=== PATIENT | female | born 1935 | race Caucasian/White ===

== ENCOUNTER 2020-12-22 11:13 | Emergency (ER) | payer MEDICARE, OTHER ==
[2020-12-22] MEDS ORDERED: Pantoprazole 40 MG Vial IVPUSH ONE (11:44)
[2020-12-22] MEDS ORDERED: Sodium Chloride 0.9% 1,000 ML IV SCH (11:45)
--- NOTE | 2020-12-22 11:50 | EDM.PDOC ---
ED HPI GENERAL MEDICAL PROBLEM - General Chief Complaint: Gastrointestinal Problem Stated Complaint: MEDICAL VIA NORTH Time Seen by Provider: 12/22/20 11:35 Source of Information: Reports: Patient, EMS History Limitations: Reports: No Limitations - History of Present Illness INITIAL COMMENTS - FREE TEXT/NARRATIVE: 85-year-old female brought in by EMS due to recurring abdominal pain, hematemesis, dark stools and weakness. She insist this started because she stopped her pain medications. She has chronic back pain. She has not had GI bleed issues in the past, no history of ulcers. No fevers or chills, no chest pain or shortness of breath. Onset: Sudden (Symptoms started fairly suddenly 3 days ago) Associated Symptoms: Reports: Loss of Appetite, Malaise, Nausea/Vomiting (Hematemesis), Weakness. Denies: Confusion, Chest Pain, Cough, Shortness of Breath Abdomen Pain Score (Numeric/FACES): 7 - Related Data Allergies Allergy/AdvReac Type Severity Reaction Status Date / Time PARAMJIT Inhibitors Allergy Cough Verified 12/22/20 11:19 gabapentin Allergy Rash Verified 12/22/20 11:19 oxycodone Allergy Nausea Verified 12/22/20 11:19 Penicillins Allergy Rash Verified 12/22/20 11:19 Quinolones Allergy Muscle Verified 12/22/20 11:19 Aches vancomycin Allergy Hives Verified 12/22/20 11:19 zolpidem Allergy Other Verified 12/22/20 11:19 Home Meds: Home Meds Albuterol Sulfate [Albuterol Sulfate Hfa] 2 puff INH Q4H PRN 09/30/19 [History] Alendronate Sodium [Fosamax] 70 mg PO DAILY 09/30/19 [History] Aspirin [Adult Low Dose Aspirin EC] 81 mg PO DAILY 09/30/19 [History] Cetirizine [ZyrTEC] 10 mg PO DAILY PRN 09/30/19 [History] Cholecalciferol (Vitamin D3) [Vitamin D3] 1,000 unit PO DAILY 09/30/19 [History] Clobetasol [Clobetasol Propionate 0.05%] 1 applic TOP BID PRN 09/30/19 [History] Esomeprazole [NexIUM] 40 mg PO DAILY 09/30/19 [History] Hydrocodone/Acetaminophen [[place] 7.5-325 Tablet] 1 each PO Q12H PRN 09/30/19 [History] Nitroglycerin [Nitrostat] 0.4 mg SL ASDIRECTED 09/30/19 [History] Sennosides/Docusate Sodium [Senna Plus 8.6-50 mg Tablet] 1 each PO DAILY 09/30/19 [History] atorvaSTATin Calcium [Lipitor] 20 mg PO DAILY 09/30/19 [History] estradioL [Estrace 0.01% Vaginal Crm] 0.5 g VAG DAILY 09/30/19 [History] predniSONE 20 mg PO ASDIRECTED 09/30/19 [History] tiZANidine HCl [Zanaflex] 4 mg PO Q8H PRN 09/30/19 [History] Social & Family History - Tobacco Use Tobacco Use Status *Q: Never Tobacco User - Recreational Drug Use Recreational Drug Use: No ED ROS GENERAL - Review of Systems Review Of Systems: See Below Constitutional: Reports: Malaise. Denies: Fever, Chills HEENT: Denies: Throat Pain Respiratory: Denies: Shortness of Breath Cardiovascular: Denies: Chest Pain, Palpitations GI/Abdominal: Reports: Abdominal Pain, Hematemesis, Melena, Nausea, Vomiting : Reports: No Symptoms Musculoskeletal: Reports: Back Pain (Chronic, unchanged) Skin: Reports: Pallor. Denies: Bruising Neurological: Reports: Weakness. Denies: Confusion, Headache, Paresthesia, Trouble Speaking Psychiatric: Reports: No Symptoms ED EXAM, GENERAL - Physical Exam Exam: See Below Exam Limited By: No Limitations General Appearance: Alert, No Apparent Distress, Other (Vitals are normal, temperature is 98.1, O2 sats 96 and blood pressure 175/75. Pulse is 84) Head: Atraumatic Neck: Supple, Non-Tender Respiratory/Chest: Lungs Clear Cardiovascular: Regular Rate, Rhythm. No: Tachycardia GI/Abdominal: Soft, Other (Some scattered abdominal tenderness to palpation but no focal tenderness or guarding) Rectal (Female) Exam: Normal Exam, Other (Darkish stool is present but it is not melanotic, there are no rectal masses or tenderness) Extremities: Normal Inspection. No: Pedal Edema Neurological: Alert, Oriented, No Motor/Sensory Deficits Psychiatric: Normal Affect, Normal Mood Course - Vital Signs Last Recorded V/S: Last Vital Signs Temp 98.1 F 12/22/20 11:15 Pulse 82 12/22/20 12:08 Resp 23 H 12/22/20 12:08 BP 187/85 H 12/22/20 12:08 Pulse Ox 97 12/22/20 12:08 - Orders/Labs/Meds Labs: Laboratory Tests 12/22/20 12/22/20 12/22/20 Range/Units 11:43 11:43 11:43 WBC 8.7 (4.5-11.0) K/uL RBC 4.81 (3.30-5.50) M/uL Hgb 16.4 H (12.0-15.0) g/dL Hct 49.0 H (36.0-48.0) % MCV 102 H (80-98) fL MCH 34 H (27-31) pg MCHC 34 (32-36) % Plt Count 278 (150-400) K/uL Neut % (Auto) 77.1 H (36-66) % Lymph % (Auto) 15.4 L (24-44) % [place] % (Auto) 6.0 (2-6) % Eos % (Auto) 1.2 L (2-4) % Baso % (Auto) 0.3 (0-1) % PT 10.8 H (9.2-10.6) sec INR 1.1 Sodium 138 L (140-148) mmol/L Potassium 4.2 (3.6-5.2) mmol/L Chloride 103 (100-108) mmol/L Carbon Dioxide 22 (21-32) mmol/L Anion Gap 17.2 H (5.0-14.0) mmol/L BUN 14 (7-18) mg/dL Creatinine 0.8 (0.6-1.0) mg/dL Est Cr Clr Drug Dosing 43.59 mL/min Estimated GFR (MDRD) > 60 (>60) Glucose 100 (74-106) mg/dL Calcium 8.3 L (8.5-10.1) mg/dL Total Bilirubin 1.0 (0.2-1.0) mg/dL AST 35 (15-37) U/L ALT 21 (12-78) U/L Alkaline Phosphatase 61 (46-116) U/L Total Protein 7.2 (6.4-8.2) g/dL Albumin 3.6 (3.4-5.0) g/dL Globulin 3.6 H (2.3-3.5) g/dL Albumin/Globulin Ratio 1.0 L (1.2-2.2) Meds: Medications Discontinued Medications Generic Name Dose Route Start Last Admin Trade Name Uriel PRN Reason Stop Dose Admin Sodium Chloride 1,000 mls @ 250 mls/hr 12/22/20 11:45 12/22/20 12:03 Normal Saline IV 250 mls/hr ASDIRECTED JONO Administration Pantoprazole Sodium 40 mg 12/22/20 11:44 12/22/20 12:03 Pantoprazole 40 Mg Vial IVPUSH 12/22/20 11:45 40 mg ONETIME ONE Administration - Re-Assessments/Exams Free Text/Narrative Re-Assessment/Exam: 12/22/20 11:49 A guaiac will be tested on the stool, CBC CMP INR drawn and the patient will be given 250 cc of normal saline along with 40 mg of IV Protonix. 12/22/20 13:18 Stool was guaiac positive, but hemoglobin was normal, BUN was normal, electrolytes normal. Patient was in the emergency room for 2 hours and had no emesis or dark stools. She has not had her normal pain medications for the last 3 days, I suspect it is because some nausea and vomiting, possibly gastritis or small [place] tears causing her symptoms. I gave her 15 tramadol to use as directed until she can get a new prescription, and encouraged her to take 20 mg of omeprazole daily for 2 weeks. She can return if symptoms persist over the next 2 or 3 days. Departure - Departure Time of Disposition: 13:48 Disposition: Home, Self-Care 01 Clinical Impression: Hematemesis of unknown cause Chronic pain Qualifiers: Chronic pain type: chronic pain syndrome Qualified Code(s): G89.4 - Chronic pain syndrome - Discharge Information Instructions: Hematemesis, Managing Chronic Back Pain Referrals: PCP,None [Primary Care Provider] - Forms: ED Department Discharge Care Plan Goals: Restart your tramadol as needed and get a refill if you feel better taking the pain medication. I would also strongly recommend at least 20 mg of omeprazole daily for 2 consecutive weeks. Return to the emergency room in 2 to 3 days if you continue to have dark stools or vomiting. Sepsis Event Note (ED) - Evaluation Sepsis Screening Result: No Definite Risk - Focused Exam Vital Signs: Vital Signs Temp Pulse Resp BP Pulse Ox 12/22/20 12:08 82 23 H 187/85 H 97 12/22/20 11:15 98.1 F 84 20 175/75 H 96
== END 2020-12-22 14:04 | disposition home or self-care (01) ==
LOC: JP.ED 11:13
DX: G89.4 Chronic pain syndrome (principal); R10.9 Unspecified abdominal pain; K92.0 Hematemesis; Z88.8 Allergy status to other drugs, medicaments and biological substances; Z88.5 Allergy status to narcotic agent; Z88.0 Allergy status to penicillin; Z88.1 Allergy status to other antibiotic agents
CPT/HCPCS: 36415; 80053; 82272; 85025; 85610; 96374; 99285; C9113; J7030

== ENCOUNTER 2021-01-17 21:14 | Emergency (ER) | payer MEDICARE ==
--- NOTE | 2021-01-17 21:47 | EDM.PDOC ---
<OfficerRuben - Last Filed: 01/17/21 21:45> ED HPI GENERAL MEDICAL PROBLEM - General Chief Complaint: Lower Extremity Injury/Pain Stated Complaint: MEDICAL VIA NORTH (FALL) Time Seen by Provider: 01/17/21 21:41 Source of Information: Reports: Patient, Family, RN Notes Reviewed History Limitations: Reports: No Limitations - History of Present Illness INITIAL COMMENTS - FREE TEXT/NARRATIVE: 85-year-old female presents emergency department today via EMS complaining of right hip pain, she believes she fell out of bed Sunday evening however she lives in assisted living does not see medical care, has been pivoting on one hip and not bearing weight since that time. Now the pain has gotten so severe she presented to the emergency department for further evaluation this evening. Right Hip Pain Score (Numeric/FACES): 5 - Related Data Allergies Allergy/AdvReac Type Severity Reaction Status Date / Time PARAMJIT Inhibitors Allergy Cough Verified 12/22/20 11:19 gabapentin Allergy Rash Verified 12/22/20 11:19 oxycodone Allergy Nausea Verified 12/22/20 11:19 Penicillins Allergy Rash Verified 12/22/20 11:19 Quinolones Allergy Muscle Verified 12/22/20 11:19 Aches vancomycin Allergy Hives Verified 12/22/20 11:19 zolpidem Allergy Other Verified 12/22/20 11:19 Home Meds: Home Meds Albuterol Sulfate [Albuterol Sulfate Hfa] 2 puff INH Q4H PRN 09/30/19 [History] Aspirin [Adult Low Dose Aspirin EC] 81 mg PO DAILY 09/30/19 [History] Cetirizine [ZyrTEC] 10 mg PO DAILY PRN 09/30/19 [History] Esomeprazole [NexIUM] 40 mg PO DAILY 09/30/19 [History] Nitroglycerin [Nitrostat] 0.4 mg SL ASDIRECTED 09/30/19 [History] Sennosides/Docusate Sodium [Senna Plus 8.6-50 mg Tablet] 1 each PO DAILY 09/30/19 [History] atorvaSTATin Calcium [Lipitor] 20 mg PO DAILY 09/30/19 [History] estradioL [Estrace 0.01% Vaginal Crm] 0.5 g VAG DAILY 09/30/19 [History] Cholecalciferol (Vitamin D3) [Vitamin D3] 1,000 unit PO DAILY 01/17/21 [History] Naproxen 250 mg PO BID 01/17/21 [History] Pregabalin [Lyrica] 75 mg PO TID 01/17/21 [History] traMADol [Ultram] 50 mg PO Q8H PRN 01/17/21 [History] Past Medical History Cardiovascular History: Reports: Angina [employer] History: Reports: Musculoskeletal History: Reports: Back Pain, Chronic Oncologic (Cancer) History: Reports: Other (See Below) Other Oncologic History: 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 - Infectious Disease History Infectious Disease History: Reports: Chicken Pox, Measles, Mumps, Rubella, Shingles - Past Surgical History GI Surgical History: Reports: Appendectomy, Cholecystectomy Female Surgical History: Reports: Hysterectomy, Oophorectomy Neurological Surgical History: Reports: Spinal Fusion Musculoskeletal Surgical History: Reports: Other (See Below) Other Musculoskeletal Surgeries/Procedures:: 5 back surgeries Social & Family History - Family History Family Medical History: No Pertinent Family History - Tobacco Use Tobacco Use Status *Q: Never Tobacco User Second Hand Smoke Exposure: No - Caffeine Use Caffeine Use: Reports: None - Recreational Drug Use Recreational Drug Use: No Review of Systems - Review of Systems Review Of Systems: See Below Constitutional: Reports: No Symptoms Musculoskeletal: Reports: Joint Pain (Right hip pain) ED EXAM, GENERAL - Physical Exam Exam: See Below Free Text/Narrative:: The right hip is shortened externally rotated she will not tolerate any bit of an exam she is tender to palpation over the greater trochanter Exam Limited By: No Limitations General Appearance: Alert, WD/WN, No Apparent Distress Departure - Departure Disposition: Home, Self-Care 01 Clinical Impression: Weakness, Fall in elderly patient - Discharge Information Instructions: Weakness Referrals: PCP,None [Ordering Only Provider] - Forms: ED Department Discharge Additional Instructions: Continue your usual medications. Home care and usp placement are pending. Sepsis Event Note (ED) - Evaluation Sepsis Screening Result: No Definite Risk <Brandyn Paige - Last Filed: 01/18/21 15:28> Course - Vital Signs Last Recorded V/S: Last Vital Signs Temp 36.9 C 01/18/21 03:58 Pulse 88 01/18/21 15:11 Resp 20 01/18/21 11:41 BP 112/42 L 01/18/21 15:11 Pulse Ox 98 01/18/21 11:41 - Orders/Labs/Meds Orders: Active Orders 24 hr Category Date Time Status Consult to Occupational Therapy [OT Evaluation and Cons 01/17/21 23:31 Active Treatment] [CONS] Routine PT Evaluation and Treatment [CONS] Routine Cons 01/17/21 23:31 Active Hip Min 2V or 3V Rt [CR] Stat Exams 01/17/21 21:44 Taken UA W/MICROSCOPIC [URIN] Urgent Lab 01/18/21 05:13 Ordered Pregabalin [Lyrica] Med 01/18/21 11:49 Active 75 mg PO TID traMADol [Ultram] Med 01/18/21 11:45 Active 50 mg PO Q6H Medication Orders Pregabalin (Pregabalin 75 Mg Cap) 75 mg PO TID [facility] Last Admin: 01/18/21 14:05 Dose: Not Given Documented by: Admin: 01/18/21 12:05 Dose: 75 mg Documented by: [id number] Tramadol HCl (Tramadol 50 Mg Tab) 50 mg PO Q6H [facility] Last Admin: 01/18/21 12:06 Dose: 50 mg Documented by: [id number] Labs: Laboratory Tests 01/18/21 01/18/21 Range/Units 05:14 05:20 WBC 10.2 (4.5-11.0) K/uL RBC 4.12 (3.30-5.50) M/uL Hgb 13.7 D (12.0-15.0) g/dL Hct 43.6 (36.0-48.0) % MCV 106 H (80-98) fL MCH 33 H (27-31) pg MCHC 31 L (32-36) % Plt Count 271 (150-400) K/uL Neut % (Auto) 71.2 H (36-66) % Lymph % (Auto) 16.3 L (24-44) % [place] % (Auto) 10.2 H (2-6) % Eos % (Auto) 2.0 (2-4) % Baso % (Auto) 0.3 (0-1) % Sodium 140 (140-148) mmol/L Potassium 4.4 (3.6-5.2) mmol/L Chloride 105 (100-108) mmol/L Carbon Dioxide 27 (21-32) mmol/L Anion Gap 8.3 (5.0-14.0) mmol/L BUN 16 (7-18) mg/dL Creatinine 1.0 (0.6-1.0) mg/dL Est Cr Clr Drug Dosing 34.51 mL/min Estimated GFR (MDRD) 53 L (>60) Glucose 113 H (74-106) mg/dL Calcium 8.0 L (8.5-10.1) mg/dL Meds: Medications Generic Name Dose Route Start Last Admin Trade Name Freq PRN Reason Stop Dose Admin Pregabalin 75 mg 01/18/21 11:49 01/18/21 14:05 Pregabalin 75 Mg Cap PO Not Given TID OJNO Tramadol HCl 50 mg 01/18/21 11:45 01/18/21 12:06 Tramadol 50 Mg Tab PO 50 mg Q6H JONO Administration Discontinued Medications Generic Name Dose Route Start Last Admin Trade Name Freq PRN Reason Stop Dose Admin Hydromorphone HCl 0.5 mg 01/17/21 22:39 01/17/21 22:46 Hydromorphone 0.5 Mg/0.5 Ml Syringe IVPUSH 01/17/21 22:40 0.5 mg ONETIME ONE Administration Hydromorphone HCl 0.5 mg 01/18/21 04:42 01/18/21 04:49 Hydromorphone 0.5 Mg/0.5 Ml Syringe IVPUSH 01/18/21 04:43 0.5 mg ONETIME ONE Administration Pregabalin 75 mg 01/18/21 14:00 Pregabalin 75 Mg Cap PO TID JONO - Radiology Interpretation Free Text/Narrative:: shoulder X-ray-neg R rib X-rays-neg Departure - Departure Time of Disposition: 16:15 Condition: Fair - Discharge Information *PRESCRIPTION DRUG MONITORING PROGRAM REVIEWED*: Not Applicable *COPY OF PRESCRIPTION DRUG MONITORING REPORT IN PATIENT TAVARES: Not Applicable Sepsis Event Note (ED) - Focused Exam Vital Signs: Vital Signs Temp Pulse Resp BP Pulse Ox 01/18/21 15:11 88 112/42 L 01/18/21 11:41 94 20 138/62 98 01/18/21 05:58 85 16 124/58 L 96 01/18/21 04:58 91 16 130/57 L 96 01/18/21 03:58 36.9 C 85 16 126/51 L 96 - My Orders Last 24 Hours: My Active Orders 01/18/21 11:45 traMADol [Ultram] 50 mg PO Q6H 01/18/21 11:49 Pregabalin [Lyrica] 75 mg PO TID - Assessment/Plan Last 24 Hours: My Active Orders 01/18/21 11:45 traMADol [Ultram] 50 mg PO Q6H 01/18/21 11:49 Pregabalin [Lyrica] 75 mg PO TID
[2021-01-17] MEDS ORDERED: HYDROmorphone 0.5 MG/0.5 ML Syringe IVPUSH ONE (22:39)
--- NOTE | 2021-01-17 23:00 | CRLCT ---
For Patients: As a result of the Century Cures Act, medical imaging exams and procedure reports are released immediately into your electronic medical record. You may view this report before your referring provider. If you have questions, please contact your health care provider. HISTORY: Fall, right hip pain. TECHNIQUE: Noncontrast CT of the pelvis. COMPARISON: No prior. FINDINGS: There is no acute pelvic or proximal femoral fracture. Degenerative changes of the hips, pubic symphysis and sacroiliac joints. Defects involving the posterior iliac bones related to prior bone graft harvest. Bones appear osteopenic. Changes of prior hysterectomy. Mild subcutaneous tissue infiltration lateral to the right iliac wing could relate to recent trauma. There is no space-occupying hematoma in that location. IMPRESSION: 1. No acute fracture. 2. Degenerative changes. 3. Mild infiltration of the subcutaneous tissues lateral to the right iliac wing could relate to recent trauma. No space-occupying hematoma in that location. Please note that all CT scans at this facility use dose modulation, iterative reconstruction, and/or weight-based dosing when appropriate to reduce radiation dose to as low as reasonably achievable. Dictated by Matt Guido MD @ 01/18/2021 8:09:24 AM (Electronically Signed)
[2021-01-18] MEDS ORDERED: HYDROmorphone 0.5 MG/0.5 ML Syringe IVPUSH ONE (04:42)
[2021-01-18] MEDS ORDERED: traMADol 50 MG Tab PO SCH (11:45)
--- NOTE | 2021-01-18 11:52 | CRLCR ---
For Patients: As a result of the Cures Act, medical imaging exams and procedure reports are released immediately into your electronic medical record. You may view this report before your referring provider. If you have questions, please contact your health care provider. Indication: Injury Comparison: None available. Technique: AP internal, external rotation, and scapular-Y views right shoulder were obtained Findings: There is no displaced fracture or dislocation. There are moderate degenerative changes of the acromioclavicular and glenohumeral joints with marginal osteophyte formation and subchondral sclerosis. The soft tissues are unremarkable. Impression: Moderate degenerative changes of the shoulder without acute osseous abnormality. Dictated by Nikko Milner MD @ 01/18/2021 11:50:28 AM (Electronically Signed)
--- NOTE | 2021-01-18 11:58 | CRLCR ---
For Patients: As a result of the Cures Act, medical imaging exams and procedure reports are released immediately into your electronic medical record. You may view this report before your referring provider. If you have questions, please contact your health care provider. INDICATION: Injury TECHNIQUE: AP and Oblique views right chest COMPARISON: None available. FINDINGS: There is no dense consolidation, effusion, or pneumothorax. The cardiomediastinal silhouette is within normal limits. There is no evidence of displaced rib fracture. The bony thorax is otherwise intact. IMPRESSION: No acute cardiopulmonary abnormality. No displaced rib fracture is appreciated. If pain and clinical symptoms persist, subtle, non-displaced injuries are not entirely excluded. Dictated by Nikko Milner MD @ 01/18/2021 11:56:26 AM (Electronically Signed)
[2021-01-18] MEDS: Pregabalin 75 MG Cap PO SCH ×2 (12:05→14:05)
[2021-01-18] MEDS ORDERED: Pregabalin 75 MG Cap PO SCH (14:00)
--- NOTE | 2021-01-20 09:30 | CR ---
Hip Min 2V or 3V Rt CLINICAL HISTORY: Injury FINDINGS: There is joint space narrowing in the right hip. There is acetabular spurring. No fracture or osseous lesion is seen. Impression: Osteoarthritic change No fracture
== END 2021-01-18 16:12 | disposition home or self-care (01) ==
LOC: JP.ED 21:14
DX: R53.1 Weakness (principal); Z88.8 Allergy status to other drugs, medicaments and biological substances; Z88.5 Allergy status to narcotic agent; Z88.0 Allergy status to penicillin; Z88.1 Allergy status to other antibiotic agents; Z79.82 Long term (current) use of aspirin; Z79.899 Other long term (current) drug therapy; W19.XXXA Unspecified fall, initial encounter
CPT/HCPCS: 36415; 71100; 72192; 73030; 73502; 80048; 85025; 96374; 96376; 99284; A9270; J1170; 97161-GP; 97165-GO

== ENCOUNTER 2021-04-11 21:02 | Emergency (ER) | payer MEDICARE | END 2021-04-12 00:21 | disposition home or self-care (01) | LOC: JP.ED 21:02 | DX: I50.9 Heart failure, unspecified (principal); R41.0 Disorientation, unspecified; R60.0 Localized edema; R29.6 Repeated falls; I48.91 Unspecified atrial fibrillation; K21.9 Gastro-esophageal reflux disease without esophagitis; I45.2 Bifascicular block; Z88.6 Allergy status to analgesic agent; Z88.0 Allergy status to penicillin; Z88.1 Allergy status to other antibiotic agents; Z88.8 Allergy status to other drugs, medicaments and biological substances; Z88.5 Allergy status to narcotic agent; Z79.899 Other long term (current) drug therapy | CPT/HCPCS: 36415; 80053; 81001; 83880; 84484; 85025; 93005; 99284-25 ==

== ENCOUNTER 2022-01-13 17:18 | Emergency (ER) | payer MEDICARE, OTHER ==
[2022-01-13 19:45] LABS: ESTIMATED GFR 49 mL/min (>60)
== END 2022-01-13 22:21 ==
LOC: JP.ED 17:18
DX: S52.032A Displaced fracture of olecranon process with intraarticular extension of left ulna, initial encounter for closed fracture (principal); I11.0 Hypertensive heart disease with heart failure; I50.9 Heart failure, unspecified; I48.91 Unspecified atrial fibrillation; Z20.822 Contact with and (suspected) exposure to COVID-19; Z88.0 Allergy status to penicillin; Z88.1 Allergy status to other antibiotic agents; Z88.5 Allergy status to narcotic agent; Z88.8 Allergy status to other drugs, medicaments and biological substances; W18.30XA Fall on same level, unspecified, initial encounter
CPT/HCPCS: 29105; 36415; 73080; 80053; 85025; 93005; 99284; U0002

== ENCOUNTER 2022-04-22 21:08 | Emergency (ER) | payer MEDICARE, OTHER ==
[2022-04-22 22:21] LABS: ESTIMATED GFR 44 mL/min (>60)
[2022-04-22 22:37] LABS: CORONAVIRUS COVID-19 NAA NEGATIVE (NEGATIVE)
[2022-04-22] MEDS ORDERED: cefTRIAXone 1 GM, Lidocaine 1% 2.1 ML IM ONE ×2 (23:17)
== END 2022-04-23 00:32 ==
LOC: JP.ED 21:08
DX: J20.8 Acute bronchitis due to other specified organisms (principal); N30.01 Acute cystitis with hematuria; I48.91 Unspecified atrial fibrillation; K21.9 Gastro-esophageal reflux disease without esophagitis; Z88.0 Allergy status to penicillin; Z88.1 Allergy status to other antibiotic agents; Z88.5 Allergy status to narcotic agent; Z88.8 Allergy status to other drugs, medicaments and biological substances; Z79.899 Other long term (current) drug therapy; Z20.822 Contact with and (suspected) exposure to COVID-19
CPT/HCPCS: 0241U; 36415; 70450; 71045; 80053; 81001; 85025; 87086; 87088; 87186; 96372; 99285; J0696

== ENCOUNTER 2022-06-16 13:51 | Emergency (ER) | payer MEDICARE, OTHER ==
[2022-06-16] MEDS ORDERED: Sodium Chloride 0.9% 10 ML Syringe FLUSH PRN (14:48)
[2022-06-16] MEDS ORDERED: Potassium Chloride 20 MEQ Tab.ER PO ONE (14:50)
[2022-06-16] MEDS ORDERED: Potassium Chloride 100 ML ONE ×2 (15:29→17:18)
[2022-06-16 15:33] LABS: CORONAVIRUS COVID-19 NAA NEGATIVE (NEGATIVE)
[2022-06-16] MEDS: Potassium Chloride 10 MEQ in Premix Bag 1 BAG IV SCH ×2 (15:42→17:26)
[2022-06-16] MEDS ORDERED: Sodium Chloride 0.9% 75 ML IV ONE (16:05)
[2022-06-16] MEDS ORDERED: Sodium Chloride 0.9% 10 ML Syringe FLUSH ONE (16:05)
[2022-06-16] MEDS ORDERED: Iopamidol 755 Mg/ML 100 ML Bottle IV ONE (16:05)
[2022-06-16] MEDS ORDERED: Acetaminophen 500 MG Tab PO ONE (17:13)
== END 2022-06-16 18:35 ==
LOC: JP.ED 13:51
DX: I50.9 Heart failure, unspecified (principal); N18.31 Chronic kidney disease, stage 3a; R09.02 Hypoxemia; E87.6 Hypokalemia; I48.91 Unspecified atrial fibrillation; Z79.82 Long term (current) use of aspirin; Z88.0 Allergy status to penicillin; Z88.5 Allergy status to narcotic agent; Z88.1 Allergy status to other antibiotic agents; Z79.899 Other long term (current) drug therapy; Z20.822 Contact with and (suspected) exposure to COVID-19
CPT/HCPCS: 0241U; 36415; 71045; 71275; 82803; 83735; 83880; 84145; 84443; 85379; 93005; 96365; 96366; 99285; A9270; J3480; J3490; Q9967; 93010

== ENCOUNTER 2022-07-13 12:34 | Emergency (ER) | payer MEDICARE, OTHER ==
[2022-07-13] MEDS ORDERED: Heparin Sodium 5,000 Units/ML Vial ONE (13:07)
[2022-07-13] MEDS ORDERED: Sodium Chloride 0.9% 10 ML Syringe FLUSH PRN (13:13)
[2022-07-13] MEDS ORDERED: Sodium Chloride 0.9% 1,000 ML IV ONE ×2 (13:14→13:45)
[2022-07-13] MEDS ORDERED: Pantoprazole 80 MG in Sodium Chloride 0.9% 100 ML IV ONE (13:14)
[2022-07-13] MEDS ORDERED: Pantoprazole 80 MG in Sodium Chloride 0.9% 100 ML IV SCH (13:15)
[2022-07-13 13:18] LABS: BASOPHILS ABSOLUTE AUTO 0.03 K/uL (0.00-0.10); BASOPHILS PERCENT AUTO 0.1 % (0.1-1.3); HEMATOCRIT 43.4 % (34.3-46.0); HEMOGLOBIN 13.3 g/dL (11.2-15.5); IMMATURE GRAN ABSOLUTE AUTO 0.15 K/uL (0.00-0.23); IMMATURE GRAN PERCENT AUTO 0.6 % (0.0-0.7); LYMPHOCYTES ABSOLUTE AUTO 2.51 K/uL (0.8-3.3); LYMPHOCYTES PERCENT AUTO 10.8 % (11.4-47.7); MEAN CORPUSCULAR HEMOGLOBIN 33.3 pg (31.6-35.5); MEAN CORPUSCULAR HGB CONC 30.6 g/dL (31.6-35.5); MEAN CORPUSCULAR VOLUME 108.8 fL (81.4-99.0); MONOCYTES ABSOLUTE AUTO 1.31 K/uL (0.20-0.90); MONOCYTES PERCENT AUTO 5.6 % (3.3-12.6); NEUTROPHILS ABSOLUTE AUTO 19.23 K/uL (1.0-7.6); NEUTROPHILS PERCENT AUTO 82.9 % (40.0-78.1); PLATELET COUNT,PLT 452 K/uL (130-375); RED BLOOD CELL COUNT 3.99 M/uL (3.77-5.24); WHITE BLOOD CELL COUNT,WBC 23.2 K/uL (3.2-11.0)
[2022-07-13 13:19] LABS: BASE EXCESS VENOUS 6.1 mm/L; BICARBONATE,VENOUS 31.1 mmol/L; CARBOXYHEMOGLOBIN 1.5 % (0.0-1.6); METHEMOGLOBIN 0.9 %; O2 SATURATION VENOUS 63.2; OXYHEMOGLOBIN 61.7 %; PCO2 VENOUS 48.3 mm/Hg; PH,VENOUS 7.425 (7.350-7.450); PO2 VENOUS 39.9 mm/Hg; TOTAL HEMOGLOBIN 13.7 g/dL (12.0-16.0)
[2022-07-13 13:29] LABS: A/G RATIO 0.8 (1.2-2.2); ALANINE AMINOTRANSFERASE,ALT 41 U/L (12-78); ALBUMIN 2.9 g/dL (3.4-5.0); ALKALINE PHOSPHATASE 232 U/L (46-116); ANION GAP 20.1 mmol/L (5.0-14.0); ASPARTATE AMNIOTRANSFERASE,AST 77 U/L (15-37); BILIRUBIN TOTAL 1.1 mg/dL (0.2-1.0); BLOOD UREA NITROGEN,BUN 67 mg/dL (7-18); CALCIUM 8.7 mg/dL (8.5-10.1); CARBON DIOXIDE,CO2 30 mmol/L (21-32); CHLORIDE,CL 94 mmol/L (100-108); ESTIMATED GFR 24 mL/min (>60); GLUCOSE RANDOM 238 mg/dL (74-106); POTASSIUM,K 4.1 mmol/L (3.6-5.2); PROTEIN TOTAL,TP 6.5 g/dL (6.4-8.2); SODIUM,NA 140 mmol/L (140-148)
[2022-07-13 13:32] LABS: INR 1.1; PROTHROMBIN TIME 10.9 sec (9.2-10.6); PTT,PARTIAL THROMBOPLSTIN TIME 22.9 sec (21.8-27.3)
[2022-07-13] MEDS ORDERED: Succinylcholine 200 MG/10 ML MDV ONE (13:35)
[2022-07-13] MEDS ORDERED: propofoL 100 ML IV SCH (14:00)
[2022-07-13 14:15] LABS: BASE EXCESS ARTERIAL 1.6 mm/L; BICARBONATE,ARTERIAL 26.3 mmol/L (22.0-26.0); CARBOXYHEMOGLOBIN 0.5 % (0.0-1.6); METHEMOGLOBIN 0.5 %; O2 SATURATION ARTERIAL 96.3 % (95.0-98.0); OXYHEMOGLOBIN 95.3 %; PCO2 ARTERIAL 44.5 mmHg (35.0-42.0); TOTAL HEMOGLOBIN 11.7 g/dL (12.0-16.0)
[2022-07-13] MEDS: Lidocaine 2% 20 ML MDV ONE ×2 (14:15→16:48)
[2022-07-13 14:16] LABS: HEMATOCRIT 37.1 % (34.3-46.0); HEMOGLOBIN 11.3 g/dL (11.2-15.5)
[2022-07-13] MEDS ORDERED: Succinylcholine 200 MG/10 ML MDV IV ONE (15:00)
[2022-07-13] MEDS ORDERED: Etomidate 2 MG/ML 10 ML SDV IVPUSH ONE (15:00)
[2022-07-13] MEDS ORDERED: cefTRIAXone 1 GM in Sodium Chloride 0.9% 50 ML IV ONE (16:01)
[2022-07-13] MEDS ORDERED: Sodium Chloride 0.9% 1,000 ML IV SCH (16:15)
[2022-07-13 16:28] LABS: BASE EXCESS ARTERIAL 3.8 mm/L; CARBOXYHEMOGLOBIN 1.2 % (0.0-1.6); METHEMOGLOBIN 1.2 %; O2 SATURATION ARTERIAL 89.4 % (95.0-98.0); OXYHEMOGLOBIN 87.3 %; PCO2 ARTERIAL 42.7 mmHg (35.0-42.0); PO2 ARTERIAL 64.6 mmHg (75.0-100.0); TOTAL HEMOGLOBIN 11.2 g/dL (12.0-16.0)
[2022-07-13 16:40] LABS: APPEARANCE,URINE CLOUDY (CLEAR); BILIRUBIN,URINE NEGATIVE (NEGATIVE); COLOR,URINE YELLOW (YELLOW); GLUCOSE,URINE NEGATIVE (NEGATIVE); KETONES,URINE NEGATIVE (NEGATIVE); LEUKOCYTE ESTERASE,URINE SMALL (NEGATIVE); NITRITE,URINE NEGATIVE (NEGATIVE); OCCULT BLOOD,URINE NEGATIVE (NEGATIVE); PH,URINE 7.5 (5.0-8.0); PROTEIN,URINE NEGATIVE (NEGATIVE); UROBILINOGEN,URINE 0.2 EU/dL (0.2-1.0)
[2022-07-13] MEDS ORDERED: Lidocaine 2% 100 MG/5 ML Syringe IVPUSH ONE (16:43)
[2022-07-13 16:46] LABS: AMORPHOUS SEDIMENT,URINE NOT SEEN; BACTERIA,URINE MANY; EPITHELIAL CELLS,URINE RARE; MUCUS,URINE NOT SEEN; RBC,URINE 0-5 (0-5)
== END 2022-07-13 18:00 ==
LOC: JP.ED 12:34
DX: K92.2 Gastrointestinal hemorrhage, unspecified (principal); N18.31 Chronic kidney disease, stage 3a; I50.9 Heart failure, unspecified; J69.0 Pneumonitis due to inhalation of food and vomit; J96.00 Acute respiratory failure, unspecified whether with hypoxia or hypercapnia; R77.8 Other specified abnormalities of plasma proteins; I48.91 Unspecified atrial fibrillation; K21.9 Gastro-esophageal reflux disease without esophagitis; Z88.0 Allergy status to penicillin; Z88.1 Allergy status to other antibiotic agents; Z88.8 Allergy status to other drugs, medicaments and biological substances; Z79.899 Other long term (current) drug therapy
CPT/HCPCS: 31500; 36415; 36556; 51702; 70450; 71045; 71250; 74176; 80053; 81001; 82803; 84484; 85014; 85018; 85025; 85610; 85730; 86850; 86900; 86901; 93005; 93010; 96361; 96365; 96366; 96368; 96375; 99291; C1751; C1894; C9113; J0330; J0696; J1644; J2704; J3490; J7030